=== PATIENT | female | born 1990 | race Caucasian/White ===

== ENCOUNTER 2018-02-26 14:00 | Emergency (ER) | payer SELFPAY ==
[~2018-02-26] VITALS: Ht 157.5 cm; Wt 93.9 kg
[~2018-02-26 14:00] MED LIST: PREN-385 PO; [UNRECOGNIZED DRUG - CODE] PO
[2018-02-26 14:04] VITALS: BP 150/93
--- NOTE | 2018-02-26 14:11 | NUR ---
27 YO F BIB SELF W/ C/O DIZZINESS WHEN SHE BENDS DOWN THAT HAS BEEN SEVERE TODAY. SHE REPORTS SHE HAS BEEN HAVING TO CALL OFF WORK R/T THE DIZZZINESS. AFTER SHE GETS DIZZY SHE HAS TO GO TO THE RESTROOM AND GO THROW UP. PT DENIES PAIN. DENIES N/V AT THIS TIME. DENIES FALLING OR BLACKING OUT R/T DIZZINESS. PT REPORTS SHE IS EATING/DRINKING FINE, BUT SKIPS MEALS DUE TO LOSS OF TIME. PT A&O X4. GCS 15. CMS INTACT. AMBULATORY W/ STEADY GAIT. RR EVEN AND UNLABORED AT THIS TIME. LUNGS BILAT CLEAR. ABD SOFT, NON-TENDER. ER MD OLSON NOTIFIED. PT NEEDS MET. SAFETY PRECAUTIONS IN PLACE. WILL CONTINUE TO MONITOR.
--- NOTE | 2018-02-26 14:14 | NUR ---
TO ER BED 4
[2018-02-26] MEDS ORDERED: MECLIZINE 25 MG TAB PO ONE (14:30)
[2018-02-26 15:02] LABS: BASOPHILS % (AUTO) 0.5 % (0.0-2.0); EOSINOPHILS # (AUTO) 0.2 K/uL (0-0.4); HEMATOCRIT 39.3 % (36-48); LYMPHOCYTES # (AUTO) 2.6 K/uL (2.5-16.5); LYMPHOCYTES % (AUTO) 36.6 % (20.5-51.1); MEAN CORPUSCULAR HEMOGLOBIN 27 pg (27-31); MEAN CORPUSCULAR HGB CONC 33 g/dL (33-37); MEAN CORPUSCULAR VOLUME 81.7 fL (80-94); MONOCYTES # (AUTO) 0.6 K/uL (0.8-1.0); MONOCYTES % (AUTO) 8.5 % (1.7-9.3); NEUTROPHILS # (AUTO) 3.6 K/uL (1.8-7.7); NEUTROPHILS % (AUTO) 51.4 % (42.2-75.2); PLATELET COUNT (AUTO) 207 K/uL (140-450); RED BLOOD CELL COUNT(AUTO) 4.81 MIL/uL (4.20-5.40); RED CELL DISTRIBUTION WIDTH 14.6 % (11.6-13.7)
--- NOTE | 2018-02-26 15:20 | NUR ---
PT RESTING COMFORTABLY AT THIS TIME WAITING FOR U/S. WILL CONTINUE TO MONITOR.
[2018-02-26 15:43] LABS: CARBON DIOXIDE 24.7 mmol/L (21-32); CREATININE 1.1 mg/dL (0.6-1.3); POTASSIUM 3.7 mmol/L (3.5-5.1)
--- NOTE | 2018-02-26 16:48 | NUR ---
U/S AT BEDSIDE AT THIS TIME.
[2018-02-26 17:11] VITALS: BP 150/93
--- NOTE | 2018-02-26 17:11 | NUR ---
Patient discharged with v/s stable. Written and verbal after care instructions given and explained. Patient alert, oriented and verbalized understanding of instructions. Ambulatory with steady gait. All questions addressed prior to discharge. ID band removed. Patient advised to follow up with PMD. Rx of multi-vitamins given. Patient educated on indication of medication including possible reaction and side effects. Opportunity to ask questions provided and answered.
== END 2018-02-26 17:11 | disposition home or self-care (01) ==
LOC: MED 14:00
DX: O26.891 Other specified pregnancy related conditions, first trimester (principal); R42 Dizziness and giddiness; Z3A.01 Less than 8 weeks gestation of pregnancy; Z79.899 Other long term (current) drug therapy
CPT/HCPCS: 36415; 76801; 80048; 81002; 81025; 84702; 85025; 93005; 99285; J8597; Q0092

== ENCOUNTER 2018-06-15 14:46 | Emergency (ER) | payer MEDICAID ==
[~2018-06-15] VITALS: Ht 157.5 cm; Wt 98.0 kg
[2018-06-15 14:50] VITALS: BP 124/68
--- NOTE | 2018-06-15 15:01 | NUR ---
PATIENT AMB. TO BED #9
--- NOTE | 2018-06-15 15:17 | NUR ---
PATIENT PRESENTS TO ED WITH C/O ROOM SPINNING X2 DAYS, 19 WKS.. . HX: HTN. TAKING ALDOMET 500 MG PO BID . DENIES NAUSEA /VOMITING, LOWER BACK PAIN 03/01 . DENIES N/V/D; SKIN IS PINK/WARM/DRY; AAOX4 WITH EVEN AND STEADY GAIT; LUNGS CLEAR BL; HR EVEN AND REGULAR; PT DENIES ANY FEVER, CP, SOB, OR COUGH AT THIS TIME; VSS; PATIENT POSITIONED FOR COMFORT; HOB ELEVATED; BEDRAILS UP X2; BED DOWN. ER MD MADE AWARE OF PT STATUS.
--- NOTE | 2018-06-15 15:28 | NUR ---
Patient being evaluated by physician at bedside.
--- NOTE | 2018-06-15 15:30 | NUR ---
TONE ASSESSMENT DONE AT BEDSIDE BY OB NURSE
[2018-06-15 16:06] LABS: APPEARANCE,URINE SL CLOUDY (CLEAR); BILIRUBIN,URINE NEGATIVE (NEGATIVE); BLOOD, URINE NEGATIVE (NEGATIVE); COLOR,URINE YELLOW (YELLOW); LEUKOCYTE ESTERASE ,URINE 2+ (NEGATIVE); NITRITE, URINE NEGATIVE (NEGATIVE); UGLUCOSE NEGATIVE (NEGATIVE)
[2018-06-15 16:18] LABS: RBC,URINE 0-5 (RARE) /HPF (0-5)
[2018-06-15 18:02] VITALS: BP 118/66
--- NOTE | 2018-06-15 18:02 | NUR ---
Patient discharged with v/s stable. Written and verbal after care instructions given and explained. Patient alert, oriented and verbalized understanding of instructions. Ambulatory with steady gait. All questions addressed prior to discharge. ID band removed. Patient advised to follow up with PMD. Rx of MACROBID, MECLIZINE given. Patient educated on indication of medication including possible reaction and side effects. Opportunity to ask questions provided and answered.
== END 2018-06-15 18:02 | disposition home or self-care (01) ==
LOC: MED 14:46
DX: O23.42 Unspecified infection of urinary tract in pregnancy, second trimester (principal); O26.892 Other specified pregnancy related conditions, second trimester; R42 Dizziness and giddiness; I10 Essential (primary) hypertension; Z3A.19 19 weeks gestation of pregnancy; Z79.899 Other long term (current) drug therapy
CPT/HCPCS: 81001; 81025; 82948; 87086; 99284

== ENCOUNTER 2019-05-28 16:53 | Emergency (ER) | payer MEDICAID ==
[~2019-05-28] VITALS: Ht 160 cm; Wt 96.7 kg
[2019-05-28 17:33] VITALS: BP 126/69
--- NOTE | 2019-05-28 17:41 | NUR ---
PATIENT AMBULATED TO BED 2 AT THIS TIME.
--- NOTE | 2019-05-28 17:55 | NUR ---
PATIENT TAKEN TO CT.
--- NOTE | 2019-05-28 18:04 | NUR ---
28 Y/O FEMALE RIGHT SIDED HEADACHE X 2 DAYS. LEFT FACIAL/LEFT SIDED BODY NUMBNESS/HEAVINESS/WEAKNESS AND DIZZINESS X 10 AM. VOMITING X 2 TODAY. PT A&OX4, CLEAR SPEECH, NO FACIAL DROOP. 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 HX: HTN RX: UNKNOWN BP MED
[2019-05-28 18:25] LABS: BASOPHILS % (AUTO) 0.5 % (0.0-2.0); EOSINOPHILS # (AUTO) 0.2 K/uL (0-0.4); HEMATOCRIT 38.2 % (36-48); HEMOGLOBIN 12.5 g/dL (12.0-16.0); LYMPHOCYTES # (AUTO) 3.2 K/uL (2.5-16.5); LYMPHOCYTES % (AUTO) 40.9 % (20.5-51.1); MEAN CORPUSCULAR HEMOGLOBIN 27 pg (27-31); MEAN CORPUSCULAR HGB CONC 33 g/dL (33-37); MEAN CORPUSCULAR VOLUME 82.9 fL (80-94); MONOCYTES # (AUTO) 0.6 K/uL (0.8-1.0); MONOCYTES % (AUTO) 7.8 % (1.7-9.3); NEUTROPHILS # (AUTO) 3.9 K/uL (1.8-7.7); NEUTROPHILS % (AUTO) 48.8 % (42.2-75.2); PLATELET COUNT (AUTO) 213 K/uL (140-450); RED BLOOD CELL COUNT(AUTO) 4.61 MIL/uL (4.20-5.40); RED CELL DISTRIBUTION WIDTH 13.8 % (11.6-13.7); WHITE BLOOD COUNT (AUTO) 7.9 K/uL (4.8-10.8)
[2019-05-28 18:34] LABS: ANION GAP 9.8 (8-16); CARBON DIOXIDE 28.2 mmol/L (21-32); CREATININE 1.2 mg/dL (0.6-1.3)
[2019-05-28 18:36] LABS: PROTHROMBIN TIME 9.4 secs (10.8-13.4)
[2019-05-28 18:50] VITALS: BP 126/69
[2019-05-28 18:52] LABS: ALBUMIN 3.3 g/dL (3.4-5.0); TOTAL BILIRUBIN 0.2 mg/dL (0.0-1.0)
--- NOTE | 2019-05-28 18:58 | NUR ---
Patient to be transferred to [facility] ER. Is being transferred due to HIGHER LEVEL OF CARE . Receiving facility has accepting physician and available space. ER physician has signed transfer form. Patient or responsible republican has agreed to transfer and signed form. Patient belongings inventoried and will be sent with patient. Copy of nursing notes, lab reports, EKG, Physicians Orders and X-rays to be sent with patient. Report called to CHARGE NURSE at receiving facility. ambulance service has been called for transfer. ETA is NOW .
[2019-05-28 19:28] LABS: BARBITURATE, URINE NEG. ng/ml (NEG <=200); BENZODIAZEPINE, URINE NEG. ng/mL (NEG <=200); CANNABINOID, URINE NEG. ng/mL (NEG <=50); COCAINE, URINE NEG. ng/mL (NEG <=300); OPIATE, URINE NEG. ng/mL (NEG <=2000); PHENCYCLIDINE SCREEN,URINE NEG. ng/mL (NEG <=25)
== END 2019-05-28 18:58 | disposition short-term general hospital (02) ==
LOC: MED 16:53
DX: I10 Essential (primary) hypertension (principal); R20.0 Anesthesia of skin; Z98.890 Other specified postprocedural states
CPT/HCPCS: 36415; 70450; 71045; 80053; 80305; 81025; 84484; 85025; 85610; 85730; 93005; 99291; Q0092